=== PATIENT | female | born 1965 | race Caucasian/White ===

== ENCOUNTER 2023-08-11 20:06 | Emergency (ER) | payer OTHER ==
[2023-08-11 20:13] VITALS: BP 122/74; PULSE 80; RESP 19; TEMP 98.3; BMI 30.9
[2023-08-11] MEDS ORDERED: IBUPROFEN 600 MG TABLET (FP) PO ONE (21:41)
[2023-08-11] MEDS: IBUPROFEN 600 MG TABLET (FP) PO ONE (21:43)
[2023-08-11 22:22] LABS: THROAT:GRP A STREP NOT DETECTED (NOTDETECTED)
== END 2023-08-11 21:50 | disposition home or self-care (01) ==
LOC: JERFT 20:06
DX: R50.9 Fever, unspecified (principal); K08.89 Other specified disorders of teeth and supporting structures; H92.02 Otalgia, left ear; Z20.822 Contact with and (suspected) exposure to COVID-19
CPT/HCPCS: 0241U-QW; 87651; 99283-25